=== PATIENT | female | born 1965 | race Caucasian/White ===

== ENCOUNTER 2023-01-09 08:31 | Emergency (ER) | payer BC ==
[2023-01-09] MEDS ORDERED: Dicyclomine 20 MG/2 ML VIAL ONE (09:05)
[2023-01-09 09:42] LABS: #Basophils 0.1 thou/uL (0.0-0.2); #Eosinphils 0.2 thou/uL (0.0-0.7); #Monocytes 0.9 thou/uL (0.11-0.59); #Neutrophils 11.3 thou/uL (1.40-6.50); %Basophils 0.6 % (0.0-1.0); %Eosinophils 1.7 % (0.0-10.0); %Lymphocytes 9.7 % (21.0-51.0); %Monocytes 6.6 % (0.0-10.0); Hemoglobin 14.9 g/dL (12.0-16.0); Mean Corpuscular HGB CONC 34.2 g/dL (32.0-36.0); Mean Corpuscular Hemoglobin 29.3 pg (27.0-31.0); Mean Corpuscular Volume 85.8 fl (78.0-98.0); Mean Platelet Volume 9.8 fL (7.4-10.4); Platelet Count 298 10x3/uL (130-400); RBC Distribution Width 13.2 % (11.5-14.5); Red Blood Cell (RBC) Count 5.08 mill/uL (4.20-5.40)
[2023-01-09 09:55] LABS: Prothrombin Time 13.1 sec (12.0-14.7)
[2023-01-09 09:56] LABS: PTT 27.2 sec (22.9-36.1)
[2023-01-09 10:14] LABS: ALT (SGPT) 17 U/L (8-55); AST (SGOT) 27 U/L (5-34); Albumin 4.7 g/dL (3.5-5.0); Alkaline Phosphatase 99 U/L (40-110); Anion Gap 16 mmol/L (10-20); BUN (Urea Nitrogen) 20 mg/dL (9.8-20.1); Bilirubin, Total 1.9 mg/dL (0.2-1.2); Calc. Creatinine Clearance 0 mL/min (70-130); Calcium 10.1 mg/dL (7.8-10.44); Carbon Dioxide 25 mmol/L (22-29); Chloride 100 mmol/L (98-107); Estimated GFR 87; Globulin 3.5 g/dL (2.4-3.5); Glucose 114 mg/dL (70-105); Potassium 3.2 mmol/L (3.5-5.1); Protein, Total 8.2 g/dL (6.0-8.3)
[2023-01-09 10:22] LABS: Sodium 138 mmol/L (136-145)
[2023-01-09] MEDS ORDERED: Morphine 4 MG/ML VIAL ONE (10:35)
[2023-01-09] MEDS ORDERED: Ondansetron PF 4 MG/2 ML Vial ONE (10:35)
[2023-01-09] MEDS ORDERED: Potassium Chloride 20 MEQ TAB ONE (12:14)
[2023-01-09 20:02] LABS: Campy jejuni + coli by PCR Negative (Negative); STEC Shiga Toxin 1+2 Negative (Negative); Salmonella spp. by PCR Negative (Negative); Shigella spp + EIEC by PCR Negative (Negative)
== END 2023-01-09 12:22 | disposition home or self-care (01) ==
LOC: ERS 08:31
DX: R19.7 Diarrhea, unspecified (principal); R10.9 Unspecified abdominal pain; K62.5 Hemorrhage of anus and rectum; D72.829 Elevated white blood cell count, unspecified; I10 Essential (primary) hypertension
CPT/HCPCS: 36415; 74177; 80053; 82274; 85025; 85610; 85730; 87505; 96361; 96372; 96374; 96375; J2270; J2405

== ENCOUNTER 2023-08-23 09:39 | Outpatient (CLI) | payer BC | END 2023-08-23 09:40 | disposition home or self-care (01) | LOC: BICRAD 09:39 | PROVIDERS: ATTEND Family Medicine | DX: M79.671 Pain in right foot (principal); M25.571 Pain in right ankle and joints of right foot; R60.0 Localized edema ==